=== PATIENT | male | born 1960 | race Caucasian/White ===

== ENCOUNTER 2025-03-11 06:22 | Day surgery (SDC) | payer MEDICARE, OTHER ==
[2025-03-11] MEDS ORDERED: CEFAZOLIN 2 G in IV DEXTROSE 5% 100 ML IV ONE (08:00)
[2025-03-11] MEDS ORDERED: FENTANYL CITRATE 100 MCG/2 ML AMPUL ONE (08:23)
[2025-03-11] MEDS ORDERED: MIDAZOLAM HCL 2 MG/2 ML VIAL ONE (08:24)
[2025-03-11] MEDS ORDERED: BACITRACIN ZINC OINT 15 GM TUBE ONE (08:28)
[2025-03-11] MEDS ORDERED: BUPIVACAINE/EPI PF 0.5% 10 ML VIAL ONE (08:29)
[2025-03-11] MEDS ORDERED: LIDOCAINE HCL 1% 20 ML VIAL ONE (08:29)
[2025-03-11] MEDS ORDERED: KETOROLAC TROMETHAMINE 30 MG INJ ONE (08:36)
[2025-03-11] MEDS ORDERED: NEOSTIGMINE METHYLSULFATE 10 MG/10 ML VIAL ONE (08:36)
[2025-03-11] MEDS ORDERED: DEXAMETHASONE SOD PHOSPHATE 4 MG INJ ONE (08:36)
[2025-03-11] MEDS ORDERED: GLYCOPYRROLATE 0.2 MG/ML VIAL ONE (08:36)
[2025-03-11] MEDS ORDERED: VECURONIUM BROMIDE 10 MG VIAL ONE (08:36)
[2025-03-11] MEDS ORDERED: CEFAZOLIN 1 G VIAL ONE (08:36)
[2025-03-11] MEDS ORDERED: EPHEDRINE SULFATE 50 MG/ML AMPUL ONE (08:36)
[2025-03-11] MEDS ORDERED: PROPOFOL 200 MG/20 ML BOTTLE ONE (08:36)
[2025-03-11] MEDS ORDERED: LIDOCAINE-MPF 2% 5 ML VIAL ONE (08:36)
[2025-03-11] MEDS ORDERED: SUCCINYLCHOLINE CHLORIDE 200 MG/10 ML VIAL ONE (08:36)
[2025-03-11] MEDS ORDERED: ONDANSETRON 4 MG/2 ML VIAL ONE (08:36)
[2025-03-11] MEDS ORDERED: ACETAMINOPHEN 325 MG TABLET ONE (11:29)
[2025-03-11] MEDS ORDERED: GABAPENTIN 300 MG CAPSULE ONE (11:29)
[2025-03-11] MEDS: GABAPENTIN 300 MG CAPSULE PO ONE (11:36)
[2025-03-11] MEDS: CELECOXIB 200 MG CAPSULE PO ONE (11:36)
[2025-03-11] MEDS: ACETAMINOPHEN 325 MG TABLET PO ONE (11:38)
[2025-03-11 11:50] VITALS: BP 141/78; TEMP 97.2
== END 2025-03-11 12:14 | disposition home or self-care (01) ==
LOC: SURGERY 06:22 → DS 12:14
PROVIDERS: ATTEND Surgery
DX: K40.30 Unilateral inguinal hernia, with obstruction, without gangrene, not specified as recurrent (principal); I10 Essential (primary) hypertension; E78.00 Pure hypercholesterolemia, unspecified; F32.9 Major depressive disorder, single episode, unspecified; Z85.46 Personal history of malignant neoplasm of prostate; Z79.899 Other long term (current) drug therapy; Z98.890 Other specified postprocedural states
CPT/HCPCS: 49507; 88304; 88302; J1885; J3490 ×6; J0690 ×2; J1100; J2250; J2405; J0330; J3010; J7120; C1781; A4649